=== PATIENT | female | born 2005 | race Caucasian/White ===

== ENCOUNTER 2024-02-03 06:29 | Outpatient (REF) | payer OTHER, SELFPAY ==
--- NOTE | ~2024-02-03 | US_ITS ---
EXAMINATION: US RETROPERITONEAL COMPLETE (RENAL) CLINICAL INFORMATION: Dysuria. Bilateral flank pain. COMPARISON: None available. TECHNIQUE: Real-time imaging of the kidneys and bladder. FINDINGS: RIGHT KIDNEY: 11.7 x 4.1 x 5.9 cm (SAG x AP x TRV). The kidney appears unremarkable in size, contour, and echogenicity. Renal cortical thickness is normal. The technologist ashley a 0.1 cm structure in the right upper pole which is very poorly characterized on the current study and is felt likely artifactual in nature. No definite calculus or focal parenchymal lesion identified. No hydronephrosis. LEFT KIDNEY: 12.1 x 6.2 x 5.1 cm (SAG x AP x TRV). The kidney appears unremarkable in size, contour, and echogenicity. Renal cortical thickness is normal. No calculi or focal parenchymal lesion identified. No hydronephrosis. BLADDER: Well distended. Bilateral ureteral jets are demonstrated. Prevoid bladder volume is 256 mL. Postvoid bladder volume is 0 mL. US/US retroperitoneal comp IMPRESSION: No particularly suspicious ultrasonographic finding. Electronically signed by: En Regalado MD 02/03/2024 02:06 PM EDT
== END 2024-02-03 06:30 | disposition home or self-care (01) ==
LOC: HO.UMASIMG 06:29
PROVIDERS: Visit Provider Family Medicine
DX: R30.0 Dysuria (principal); R10.9 Unspecified abdominal pain
CPT/HCPCS: 76770